=== PATIENT | male | born 1990 | race African-American/Black ===

== ENCOUNTER 2018-06-16 19:27 | Emergency (ER) | payer SELFPAY ==
[~2018-06-16] VITALS: Ht 185.4 cm; Wt 11.4 kg
[2018-06-16 22:47] VITALS: BP 155/89
== END 2018-06-17 00:07 | disposition home or self-care (01) ==
LOC: EMS 19:27
DX: I10 Essential (primary) hypertension (principal); F41.9 Anxiety disorder, unspecified; F12.90 Cannabis use, unspecified, uncomplicated